=== PATIENT | female | born 1945 | race Caucasian/White ===

== ENCOUNTER 2022-08-22 13:11 | Emergency (ER) | payer SELFPAY ==
[~2022-08-22] VITALS: Ht 157.5 cm; Wt 65.8 kg
[2022-08-22 13:11] VITALS: BP_SYST 116
[2022-08-22 13:17] VITALS: BP_SYST 116
[2022-08-22] MEDS ORDERED: NACL 0.9% 1,000 ML IV ONE (13:45)
== END 2022-08-22 14:23 | disposition left against medical advice (07) ==
LOC: SED 13:11
DX: R55 Syncope and collapse (principal); R05.9 Cough, unspecified; K21.9 Gastro-esophageal reflux disease without esophagitis; E78.5 Hyperlipidemia, unspecified; Z79.899 Other long term (current) drug therapy
CPT/HCPCS: 99283; 96360; J7030